=== PATIENT | female | born 1970 | race Two or more races ===

== ENCOUNTER 2018-08-07 17:57 | Emergency (ER) | payer OTHER ==
[~2018-08-07] VITALS: Ht 157.5 cm; Wt 75.3 kg
[~2018-08-07 17:57] MED LIST: KETO10TA2 PO; LIDODERM30 EA TP; MILK OF MA800 MG/5 M PO; NEURONTIN300 MG PO; ORPH100T PO; OXYC1TAB9 PO
== END 2018-08-07 20:29 | disposition home or self-care (01) ==
LOC: ER 17:57
DX: B34.9 Viral infection, unspecified (principal)

== ENCOUNTER 2019-01-13 06:06 | Day surgery (SDC) | payer OTHER | END 2019-01-13 12:15 | disposition home or self-care (01) | LOC: AMB-ENDOS 06:06 | DX: K64.8 Other hemorrhoids (principal) ==